=== PATIENT | female | born 1990 | race American Indian/Alaskan Native ===

== ENCOUNTER 2016-07-12 22:55 | Emergency (ER) | payer OTHER ==
[2016-07-12 23:41] VITALS: BP 111/73; PULSE 100; RESP 20; TEMP 98.6; O2SAT 100
--- NOTE | 2016-07-13 02:22 | C.PDOC ---
Time Seen by Provider: 07/13/16 00:42 Chief Complaint (Nursing): Headache Past Medical History Vital Signs: Last Vital Signs Temp 98.6 F 07/12/16 23:40 Pulse 100 H 07/12/16 23:40 Resp 20 07/12/16 23:40 BP 111/73 07/12/16 23:40 Pulse Ox 100 07/12/16 23:40 - Medical History PMH: Migraine - Social History Hx Tobacco Use: No Hx Alcohol Use: No Hx Substance Use: No - Immunization History Hx Tetanus Toxoid Vaccination: No Hx Influenza Vaccination: No Hx Pneumococcal Vaccination: No ED Course And Treatment O2 Sat by Pulse Oximetry: 100
== END 2016-07-13 00:42 | disposition left against medical advice (07) ==
LOC: C.ER 22:55
DX: R51 Headache (principal); Z02.9 Encounter for administrative examinations, unspecified

== ENCOUNTER 2018-05-14 23:14 | Emergency (ER) | payer OTHER ==
--- NOTE | 2018-05-14 23:57 | C.PDOC ---
History Of Present Illness Patient with Hx of migraines presents to the ER with a complaint of a migraine for the past day or two. Patient states she was in the shower, felt lightheaded and dizzy, wanted to get out but then found herself on the floor. She does not remember what happened. Denies fever, chills, nausea, or vomiting. Time Seen by Provider: 05/14/18 23:57 Chief Complaint (Nursing): Trauma History Per: Patient History/Exam Limitations: no limitations Onset/Duration Of Symptoms: Days (1-2) Current Symptoms Are (Timing): Still Present Severity: Moderate Pain Scale Rating Of: 4 Recent travel outside of the [place]: No Past Medical History Reviewed: Historical Data, Nursing Documentation, Vital Signs Vital Signs: Last Vital Signs Temp 97.8 F 05/14/18 23:17 Pulse 104 H 05/14/18 23:17 Resp 20 05/14/18 23:17 BP 116/83 05/14/18 23:17 Pulse Ox 98 05/14/18 23:17 - Medical History PMH: Migraine Family History: States: No Known Family Hx - Social History Hx Tobacco Use: No Hx Alcohol Use: No Hx Substance Use: No - Immunization History Hx Tetanus Toxoid Vaccination: No Hx Influenza Vaccination: No Hx Pneumococcal Vaccination: No Review Of Systems Constitutional: Negative for: Fever, Chills Cardiovascular: Positive for: Light Headedness. Negative for: Chest Pain, Palpitations Respiratory: Negative for: Cough, Shortness of Breath Gastrointestinal: Negative for: Nausea, Vomiting Neurological: Positive for: Headache, Dizziness. Negative for: Weakness, Numbness Physical Exam - Physical Exam Appears: Non-toxic Skin: Warm, Dry Head: Normacephalic, Laceration (1.5 to chin) Eye(s): bilateral: Normal Inspection, PERRL, EOMI Oral Mucosa: Moist Neck: Trachea Midline, No Midline Cervical Tenderness, No Paracervical [place], Supple Chest: Symmetrical, No Tenderness Cardiovascular: Rhythm Regular Respiratory: No Rales, No Rhonchi, No Wheezing Gastrointestinal/Abdominal: Soft, No Tenderness Extremity: Other (Moves all extremities) Neurological/Psych: Oriented x3, Other (No focal deficit) ED Course And Treatment - Laboratory Results Result Diagrams: 05/15/18 00:22 05/15/18 00:44 O2 Sat by Pulse Oximetry: 98 (Room air) Pulse Ox Interpretation: Normal Progress Note: CT head, blood work, and urinalysis ordered. IV fluids, toradol, and zofran administered. Reevaluation Time: 06:02 Reassessment Condition: Improved Laceration - Laceration Repair chin Wound Length (In cm): 2 Description Of Wound: Linear Wound Cleansed With: Betadine Anesthesia: Lidocaine 1%, With Epi Wound Closure: Suture (5.0 prolene #5) Suture Technique And Material Used: Running Wound Complexity: Simple Medical Decision Making Medical Decision Making: Upon provider reevaluation patient is feeling better, is medically stable, and requires no further treatment in the ED at this time. Patient will be discharged home with Rx for zofran . Counseling was provided and all questions were answered regarding diagnosis and need for follow up withdr hartman. There is agreement to discharge plan. Return if symptoms persist or worsen. Disposition Counseled Patient/Family Regarding: Studies Performed, Diagnosis, Need For Followup - Disposition Referrals: Pernell Hartman MD [Staff Provider] - Disposition: HOME/ ROUTINE Disposition Time: 23:57 Condition: FAIR Additional Instructions: Please return if symptoms recur. Have your stitches removed in about 7 days Prescriptions: Ondansetron ODT [Zofran ODT] 1 odt PO BID PRN #6 odt PRN Reason: Nausea/Vomiting Instructions: Wound Care (DC), Laceration Repair, Migraine Headaches in Adults, Syncope (Fainting) (DC) Forms: [employer] [facility] ([place]) - Clinical Impression Clinical Impression: Migraine, Syncope, Chin laceration, Facial contusion - Scribe Statement The provider has reviewed the documentation as recorded by the Scribhailey Samaniego All medical record entries made by the Scribe were at my direction and personally dictated by me. I have reviewed the chart and agree that the record accurately reflects my personal performance of the history, physical exam, medical decision making, and the department course for this patient. I have also personally directed, reviewed, and agree with the discharge instructions and disposition.
[2018-05-15] MEDS ORDERED: Sodium Chloride 0.9% 1,000 ML IV ONE (00:23)
[2018-05-15 00:39] LABS: BASO % 0.4 % (0.0-2.0); EOS # 0.2 K/uL (0.0-0.7); EOS % 1.4 % (0.0-4.0); HEMOGLOBIN 12.5 g/dL (11.0-16.0); LYMPH # 2.5 K/uL (1.0-4.3); LYMPH % 19.9 % (20.0-40.0); MEAN CELL VOLUME 94.6 fL (81.0-99.0); MEAN CORPUSCULAR HEMOGLOBIN 31.2 pg (27.0-31.0); MEAN PLATELET VOLUME 9.2 fL (7.2-11.7); MONO # 0.9 K/uL (0.0-0.8); MONO % 6.9 % (0.0-10.0); NEUT # 9.1 K/uL (1.8-7.0); NEUT % 71.4 % (50.0-75.0); RBC 3.99 Mil/uL (3.80-5.20); RED CELL DISTRIBUTION WIDTH 14.4 % (11.5-14.5); WHITE BLOOD COUNT 12.7 K/uL (4.8-10.8)
[2018-05-15 00:54] LABS: BLOOD UREA NITROGEN 17 mg/dL (7-17); CALCIUM 8.6 mg/dl (8.6-10.4); GFR NON-AFRICAN AMERICAN > 60
[2018-05-15] MEDS ORDERED: Lidocaine 2% w Epi 1:100,000 Inj IJ ONE (01:44)
[2018-05-15] MEDS ORDERED: Epinephrine /Lidocaine HCL 1:100,000/2% 30 ml INJ ONE (01:47)
[2018-05-15] MEDS ORDERED: Magnesium Sulfate 1 gm in D5W 1 GM/100 ML BAG IVPB ONE ×2 (02:58→02:59)
[2018-05-15 04:10] LABS: HCG,QUALITATIVE URINE NEGATIVE (NEGATIVE)
[2018-05-15 04:30] LABS: SQUAMOUS EPITHIAL < 1 /hpf (0-5); URINE BACTERIA RARE (<OCC)
[2018-05-15 04:37] LABS: URINE BILIRUBIN NEGATIVE (NEGATIVE); URINE CLARITY Clear (Clear); URINE COLOR YELLOW (YELLOW); URINE GLUCOSE (UA) NEGATIVE (Normal)
[2018-05-15 04:38] LABS: URINE BLOOD NEGATIVE (NEGATIVE); URINE LEUKOCYTE ESTERASE NEGATIVE Leu/uL (Negative); URINE PROTEIN NEGATIVE (NEGATIVE); URINE UROBILINOGEN 0.2 mg/dL (0.2-1.0)
[2018-05-15 06:05] VITALS: O2SAT 98
[2018-05-15 06:25] VITALS: BP 109/74; PULSE 84; RESP 18; TEMP 98
--- NOTE | 2018-05-15 08:06 | CT ---
Date of service: 05/15/2018 PROCEDURE: CT HEAD WITHOUT CONTRAST. HISTORY: Headache COMPARISON: None available. TECHNIQUE: Axial computed tomography images were obtained through the head/brain without intravenous contrast. Radiation dose: Total exam DLP = 1161.62 mGy-cm. This CT exam was performed using one or more of the following dose reduction techniques: Automated exposure control, adjustment of the mA and/or kV according to patient size, and/or use of iterative reconstruction technique. FINDINGS: HEMORRHAGE: No intracranial hemorrhage. BRAIN: No mass effect or edema. No atrophy or chronic microvascular ischemic changes. VENTRICLES: Unremarkable. No hydrocephalus. CALVARIUM: Unremarkable. PARANASAL SINUSES: Unremarkable as visualized. No significant inflammatory changes. MASTOID AIR CELLS: Unremarkable as visualized. No inflammatory changes. OTHER FINDINGS: None. IMPRESSION: No acute intracranial abnormality. If symptoms persists, consider correlation with MRI. A preliminary report was generated at 12:50 a.m. on 05/15/[address] Melida Moreno from [employer].
--- NOTE | 2018-05-15 09:45 | CT ---
CT maxillofacial HISTORY: Facial contusion. COMPARISON: None available. TECHNIQUE: Multiple contiguous axial images were performed through the maxillofacial region without the use of intravenous contrast. Subsequently, sagittal and coronal reformatted images were obtained. This CT exam was performed using one or more of the following dose reduction techniques: Automated exposure control, adjustment of the mA and/or kV according to patient size, and/or use of iterative reconstruction technique. Findings: Anterior facial soft tissue contusion. Moderate mucosal thickening and hypertrophy of the inferior nasal turbinates. At the medial wall of the right maxillary sinus, there is a 9 millimeter rounded low-attenuation foci as seen on series 3, image 77 which may represent a mucosal retention cyst and or polyp. Clinical correlation. Correlation with MRI may be helpful if clinically indicated. Mild mucosal thickening of the ethmoid air cells. Frontal and sphenoid sinuses are preserved. Mastoid air cells are preserved. Dental caries noted. Rounded 7 millimeter lucency seen within the anterior midline maxilla, nonspecific possibly related to dental caries. Clinical correlation. Parotids and submandibular glands are preserved. Right facial subcutaneous soft tissue swelling. Bilateral orbital globes are preserved. Impression: Anterior facial soft tissue contusion. No evidence of acute bony pathology. Dental caries noted. Rounded 7 millimeter lucency seen within the anterior midline maxilla, nonspecific possibly related to dental caries. Clinical correlation. Moderate mucosal thickening and hypertrophy of the inferior nasal turbinates. At the medial wall of the right maxillary sinus, there is a 9 millimeter rounded low-attenuation foci as seen on series 3, image 77 which may represent a mucosal retention cyst and or polyp. Clinical correlation. Correlation with MRI may be helpful if clinically indicated. A preliminary report was generated at 4:21 a.m. on 05/15/[address] Melida Moreno from [employer]. Please note this case was placed in the PA review folder.
== END 2018-05-15 06:22 | disposition home or self-care (01) ==
LOC: C.ER 23:14
DX: G43.909 Migraine, unspecified, not intractable, without status migrainosus (principal); R55 Syncope and collapse; S01.81XA Laceration without foreign body of other part of head, initial encounter; W19.XXXA Unspecified fall, initial encounter; Y93.E1 Activity, personal bathing and showering; Y92.002 Bathroom of unspecified non-institutional (private) residence as the place of occurrence of the external cause
CPT/HCPCS: 12011; 70450; 70480; 80048; 81001; 84703; 85025; 96374; 96375; 99285; J1885; J2405; J7030